=== PATIENT | female | born 1940 | race Caucasian/White ===

== ENCOUNTER 2016-11-26 09:44 | Emergency (ER) | payer MEDICARE ==
[~2016-11-26] VITALS: Ht 165.1 cm; Wt 48.0 kg
[~2016-11-26 09:44] MED LIST: AVEL1TAB3 PO; Albuterol/Ipratropium NEB; PRED10TA PO; TYLE500T78 PO; VITA10006 PO; VITA100066 PO
[2016-11-26] MEDS ORDERED: ACET30TAB PO (11:10)
[2016-11-26 11:22] VITALS: BP 152/80
--- NOTE | 2016-11-26 11:22 | REP ---
LEFT WRIST SERIES: Four views of the left wrist are performed. There is a comminuted fracture of the distal radius with dorsal angulation. There is an avulsion fracture of the ulnar styloid process. No other acute fracture or dislocation is seen. Signed by Perfecto Fuentes MD 11/26/2016 03:15 P
== END 2016-11-26 11:29 | disposition home or self-care (01) ==
LOC: M ED 11:24
DX: S52.502A Unspecified fracture of the lower end of left radius, initial encounter for closed fracture (principal); W19.XXXA Unspecified fall, initial encounter; Y92.007 Garden or yard of unspecified non-institutional (private) residence as the place of occurrence of the external cause; Y93.89 Activity, other specified; Y99.8 Other external cause status; Z87.891 Personal history of nicotine dependence; Z79.899 Other long term (current) drug therapy

== ENCOUNTER 2022-01-16 23:17 | Inpatient (IN) | payer MEDICARE ==
[~2022-01-16] VITALS: Ht 152.4 cm; Wt 48.3 kg
[~2022-01-16 23:17] MED LIST changes: +ACET-716 PO; +PRED-351 PO; -PRED10TA PO
[2022-01-16] MEDS ORDERED: ETOMIDATE INJ 20MG/10ML VIAL IV ONE (23:25)
[2022-01-16] MEDS ORDERED: ROCURONIUM BROMIDE 50 MG/5 ML VIAL IV ONE (23:25)
[2022-01-16] MEDS ORDERED: propofoL 1,000 MG in IV 1 EA IV SCH (23:30)
[2022-01-17] VITALS (62 sets, daily range): BP systolic 62–154; BP diastolic 35–89
[2022-01-17 00:05] LABS: ABG BASE EXCESS -3.8 (-2.0-2.0); ABG HCO3 23.8 MEQ/L (22.0-26.0); ABG PARTIAL PRESSURE CO2 54.3 mmHg (35.0-45.0); ABG PARTIAL PRESSURE O2 171.9 mmHg (75.0-100.0); ABG STANDARD HCO3 21.4 MEQ/L (22.0-26.0); ABG TOTAL CO2 25.5 MEQ/L (23.0-31.0)
[2022-01-17 00:17] LABS: HEMATOCRIT 43.4 % (36.0-47.0); HEMOGLOBIN 13.7 g/dl (12.0-15.5); MEAN CORPUSCULAR HGB CONC 31.6 g/dl (32.0-36.5); PLATELET COUNT, AUTOMATED 356 10^3/uL (150-450); RED BLOOD COUNT 4.57 10^6/uL (4.00-5.40); WHITE BLOOD COUNT 18.1 10^3/uL (4.0-10.0)
[2022-01-17] MEDS ORDERED: HOME MED LIST COMPLETE! XX SCH (00:30)
[2022-01-17 00:59] LABS: ATYPICAL LYMPH 8 % (0-5); EOSINOPHILS 2 % (0-3); LYMPHOCYTES 40 % (16-44); MONOCYTES 8 % (0-5); NEUTROPHILS 42 % (28-66); PLATELET ESTIMATE NORMAL (NORMAL)
[2022-01-17 01:04] LABS: ALBUMIN 2.8 GM/DL (3.2-5.2); BILIRUBIN,DIRECT 0.3 MG/DL (0.0-0.2); BILIRUBIN,TOTAL 0.3 MG/DL (0.2-1.0); CALCIUM LEVEL 8.5 MG/DL (8.8-10.2); CREATININE FOR GFR 1.13 MG/DL (0.55-1.30); GLOMERULAR FILTRATION RATE 49.3 (>32); POTASSIUM SERUM 3.9 MEQ/L (3.5-5.1); TOTAL PROTEIN 6.5 GM/DL (6.4-8.2)
[2022-01-17] MEDS ORDERED: NS IV ONE (01:20)
[2022-01-17] MEDS ORDERED: PIPERACILLIN/TAZOBACTAM SOD 3.375 GM in D5W MINI-BAG PLUS 50 ML IV ONE (01:20)
[2022-01-17] MEDS ORDERED: ISOVUE-370 76% 100ML VIAL As Ordered ONE (01:22)
[2022-01-17 03:33] LABS: CK-MB VALUE MASS 3.3 NG/ML (<3.6); MB/CK RELATIVE INDEX 4.58 (< OR =4)
[2022-01-17] MEDS ORDERED: NS 500 ML IV ONE ×5 (03:45→21:45)
[2022-01-17] MEDS ORDERED: GLUCOSE 4GM CHEW TABLET PO PRN (04:40)
[2022-01-17] MEDS ORDERED: REFRIGERATOR IV KEYS XX PRN (04:40)
[2022-01-17] MEDS ORDERED: DEXTROSE 50% 50 ML SYRINGE IV PRN (04:40)
[2022-01-17] MEDS ORDERED: GLUCAGON INJ 1MG VIAL SC PRN (04:40)
[2022-01-17] MEDS ORDERED: ALBUTEROL 90 MCG/ACT 8GM HFA INHALER INH PRN (04:40)
[2022-01-17] MEDS: NS 1,000 ML IV SCH ×2 (05:02→17:25)
[2022-01-17] MEDS: INSULIN LISPRO (NovoLOG) PER UNIT SC SCH ×3 (06:15→18:00)
[2022-01-17] MEDS: MIDAZOLAM HCL 100 MG in D5W 80 ML IV SCH (06:47)
[2022-01-17 07:39] LABS: BLOOD UREA NITROGEN 14 MG/DL (7-18); CALCIUM LEVEL 7.6 MG/DL (8.8-10.2); CARBON DIOXIDE LEVEL 29 MEQ/L (21-32); CHLORIDE LEVEL 109 MEQ/L (98-107); CREATININE FOR GFR 0.73 MG/DL (0.55-1.30); GLOMERULAR FILTRATION RATE > 60.0 (>32); GLUCOSE, FASTING 86 MG/DL (70-100); PHOSPHORUS LEVEL 2.9 MG/DL (2.5-4.9); POTASSIUM SERUM 3.8 MEQ/L (3.5-5.1); SODIUM LEVEL 143 MEQ/L (136-145)
[2022-01-17 07:42] LABS: CK-MB VALUE MASS 13.4 NG/ML (<3.6); MB/CK RELATIVE INDEX 8.12 (< OR =4)
[2022-01-17] MEDS ORDERED: NS 1,000 ML IV SCH (07:45)
[2022-01-17 07:49] LABS: BASO % 0.3 % (0.0-1.0); EOS # 0.1 10^3/uL (0.0-0.5); EOS % 0.4 % (0.0-3.0); HEMATOCRIT 39.7 % (36.0-47.0); HEMOGLOBIN 12.5 g/dl (12.0-15.5); LYMPH # 1.5 10^3/uL (1.5-5.0); LYMPH % 10.8 % (24.0-44.0); MEAN CORPUSCULAR HEMOGLOBIN 29.3 pg (27.0-33.0); MEAN CORPUSCULAR HGB CONC 31.5 g/dl (32.0-36.5); MEAN CORPUSCULAR VOLUME 93.2 fl (80.0-96.0); MONO % 11.2 % (2.0-8.0); NEUTROPHILS # 10.9 10^3/uL (1.5-8.5); NEUTROPHILS % 76.7 % (36.0-66.0); PLATELET COUNT, AUTOMATED 268 10^3/uL (150-450); RED BLOOD COUNT 4.26 10^6/uL (4.00-5.40); WHITE BLOOD COUNT 14.1 10^3/uL (4.0-10.0)
[2022-01-17 07:50] LABS: MONO # 1.6 10^3/uL (0.0-0.8)
[2022-01-17] MEDS: PIPERACILLIN/TAZOBACTAM SOD 3.375 GM in D5W MINI-BAG PLUS 50 ML IV SCH ×3 (08:52→20:04)
[2022-01-17] MEDS: CHLORHEXIDINE GLUCONATE 0.12 % 15ML UDC (PERIDEX ORAL RINSE) MT SCH ×2 (08:52→21:22)
[2022-01-17] MEDS: PANTOPRAZOLE 40MG VIAL IV SCH (08:52)
[2022-01-17] MEDS: fentaNYL CITRATE 1,000 MCG in NS 80 ML IV SCH ×3 (08:53→23:30)
[2022-01-17] MEDS ORDERED: HEPARIN SOD (PORCINE) 5000UNITS/ML 1ML VIAL/SYRINGE SQ SCH (09:00)
[2022-01-17 12:03] LABS: ABG BASE EXCESS 0.1 (-2.0-2.0); ABG HCO3 24.5 MEQ/L (22.0-26.0); ABG O2 SATURATION 99.1 % (95.0-99.0); ABG PARTIAL PRESSURE CO2 39.2 mmHg (35.0-45.0); ABG PARTIAL PRESSURE O2 159.4 mmHg (75.0-100.0); ABG STANDARD HCO3 24.6 MEQ/L (22.0-26.0); ABG TOTAL CO2 25.7 MEQ/L (23.0-31.0); ABG pH (ARTERIAL) 7.414 UNITS (7.350-7.450)
[2022-01-17] MEDS: AZITHROMYCIN INJ 500 MG, VIAL MATE ADAPTER 1 EACH in NS 250 ML IV SCH (13:01)
[2022-01-17] MEDS ORDERED: HEPARIN DRIP 25,000 UNITS in IV 1 EA IV SCH (14:45)
[2022-01-17] MEDS ORDERED: HEPARIN SOD (PORCINE) 5000UNITS/ML 1ML VIAL/SYRINGE IV ONE (14:45)
[2022-01-17] MEDS ORDERED: HEPARIN SOD (PORCINE) 5000UNITS/ML 1ML VIAL/SYRINGE IV PRN (14:45)
[2022-01-17] MEDS ORDERED: MIDAZOLAM INJ 2MG/2ML VIAL (J2250 PER 1MG) As Ordered ONE ×2 (16:29→16:41)
[2022-01-17] MEDS ORDERED: MIDAZOLAM INJ 2MG/2ML VIAL (J2250 PER 1MG) IV ONE ×2 (16:30→16:45)
[2022-01-17 17:18] LABS: CENTRAL VEN BASE EXCESS -1.9
[2022-01-17] MEDS ORDERED: LR 1,000 ML IV ONE (17:20)
[2022-01-17] MEDS ORDERED: fentaNYL CITRATE 1,000 MCG in NS 80 ML IV SCH (18:22)
[2022-01-17] MEDS ORDERED: VANCOMYCIN HCL 1,000 MG in IV FLUID PLACE HOLDER 1 EA IV SCH (19:30)
[2022-01-17] MEDS ORDERED: NOREPINEPHRINE 8MG IN 500ML DEXTROSE 5% BAG As Ordered ONE (19:56)
[2022-01-17] MEDS ORDERED: VANCOMYCIN HCL 1,000 MG, VIAL MATE ADAPTER 1 EACH in D5W 250 ML IV ONE (21:00)
[2022-01-17 21:34] LABS: ABG BASE EXCESS -4.8 (-2.0-2.0); ABG HCO3 20.4 MEQ/L (22.0-26.0); ABG O2 SATURATION 97.4 % (95.0-99.0); ABG PARTIAL PRESSURE CO2 38.1 mmHg (35.0-45.0); ABG PARTIAL PRESSURE O2 100.8 mmHg (75.0-100.0); ABG STANDARD HCO3 20.5 MEQ/L (22.0-26.0); ABG TOTAL CO2 21.5 MEQ/L (23.0-31.0); ABG pH (ARTERIAL) 7.346 UNITS (7.350-7.450)
[2022-01-17] MEDS: NOREPINEPHRINE/DEXTROSE 8 MG in IV 1 EA IV SCH (23:17)
[2022-01-18] VITALS (89 sets, daily range): BP systolic 66–156; BP diastolic 44–93
[2022-01-18] MEDS: INSULIN LISPRO (NovoLOG) PER UNIT SC SCH ×4 (00:24→18:00)
[2022-01-18] MEDS: NS 1,000 ML IV SCH ×2 (02:22→18:05)
[2022-01-18] MEDS: PIPERACILLIN/TAZOBACTAM SOD 3.375 GM in D5W MINI-BAG PLUS 50 ML IV SCH ×4 (02:22→20:34)
[2022-01-18] MEDS: VANCOMYCIN HCL 500 MG in D5W MINI-BAG PLUS 100 ML IV SCH ×2 (05:28→18:04)
[2022-01-18 05:50] LABS: ABG HCO3 22.4 MEQ/L (22.0-26.0); ABG O2 SATURATION 97.8 % (95.0-99.0); ABG PARTIAL PRESSURE O2 109.1 mmHg (75.0-100.0); ABG STANDARD HCO3 21.2 MEQ/L (22.0-26.0); ABG TOTAL CO2 23.8 MEQ/L (23.0-31.0); ABG pH (ARTERIAL) 7.305 UNITS (7.350-7.450)
[2022-01-18 05:51] LABS: BASO % 0.2 % (0.0-1.0); EOS # 0.3 10^3/uL (0.0-0.5); EOS % 1.8 % (0.0-3.0); HEMATOCRIT 34.1 % (36.0-47.0); HEMOGLOBIN 10.9 g/dl (12.0-15.5); LYMPH # 1.8 10^3/uL (1.5-5.0); LYMPH % 11.4 % (24.0-44.0); MEAN CORPUSCULAR HEMOGLOBIN 29.5 pg (27.0-33.0); MEAN CORPUSCULAR VOLUME 92.2 fl (80.0-96.0); MONO # 1.4 10^3/uL (0.0-0.8); MONO % 8.8 % (2.0-8.0); NEUTROPHILS % 77.4 % (36.0-66.0); PLATELET COUNT, AUTOMATED 247 10^3/uL (150-450); WHITE BLOOD COUNT 15.6 10^3/uL (4.0-10.0)
[2022-01-18] MEDS: MIDAZOLAM HCL 100 MG in D5W 80 ML IV SCH (06:02)
[2022-01-18 06:20] LABS: HEMOGLOBIN A1c 5.8 %
[2022-01-18 06:38] LABS: ALBUMIN 1.9 GM/DL (3.2-5.2); ALT/SGPT 48 U/L (12-78); BILIRUBIN,TOTAL 0.4 MG/DL (0.2-1.0); BLOOD UREA NITROGEN 10 MG/DL (7-18); CALCIUM LEVEL 7.3 MG/DL (8.8-10.2); CARBON DIOXIDE LEVEL 23 MEQ/L (21-32); CHLORIDE LEVEL 115 MEQ/L (98-107); CREATININE FOR GFR 0.72 MG/DL (0.55-1.30); GLOMERULAR FILTRATION RATE > 60.0 (>32); GLUCOSE, FASTING 153 MG/DL (70-100); POTASSIUM SERUM 3.3 MEQ/L (3.5-5.1); SODIUM LEVEL 143 MEQ/L (136-145); TOTAL PROTEIN 4.4 GM/DL (6.4-8.2)
[2022-01-18] MEDS: PANTOPRAZOLE 40MG VIAL IV SCH (08:00)
[2022-01-18] MEDS: CHLORHEXIDINE GLUCONATE 0.12 % 15ML UDC (PERIDEX ORAL RINSE) MT SCH ×2 (08:00→20:34)
[2022-01-18] MEDS ORDERED: MIDAZOLAM INJ 2MG/2ML VIAL (J2250 PER 1MG) As Ordered ONE ×2 (09:36→09:37)
[2022-01-18] MEDS ORDERED: LIDOCAINE 1% MDV 20ML VIAL As Ordered ONE (09:36)
[2022-01-18] MEDS ORDERED: flumazeniL 0.5 MG/5 ML VIAL As Ordered ONE (09:37)
[2022-01-18] MEDS ORDERED: LIDOCAINE 1% MDV 20ML VIAL SC ONE (09:49)
[2022-01-18] MEDS ORDERED: VASOPRESSIN INJ 20 UNITS in NS 499 ML IV SCH ×2 (10:00)
[2022-01-18] MEDS: KCL 10MEQ/100ML SWI (KRUN) 10 MEQ in IV 1 EA IV SCH ×4 (10:21→14:00)
[2022-01-18] MEDS: NOREPINEPHRINE/DEXTROSE 8 MG in IV 1 EA IV SCH (11:15)
[2022-01-18] MEDS: AZITHROMYCIN INJ 500 MG, VIAL MATE ADAPTER 1 EACH in NS 250 ML IV SCH (12:28)
[2022-01-18] MEDS: fentaNYL CITRATE 1,000 MCG in NS 80 ML IV SCH (12:29)
[2022-01-18] MEDS ORDERED: LR 1,000 ML IV ONE (15:10)
[2022-01-18] MEDS ORDERED: FENTANYL DRIP LOCK BOX KEY 1 EACH XX PRN (15:10)
[2022-01-18] MEDS: MAG SULF 1GM/100ML (MAG RUN) 1 GM in IV 1 EA IV SCH ×2 (15:56→18:06)
[2022-01-18] MEDS: VASOPRESSIN INJ 20 UNITS in NS 499 ML IV SCH (18:05)
[2022-01-19] VITALS (65 sets, daily range): BP systolic 77–173; BP diastolic 44–83
[2022-01-19] MEDS: INSULIN LISPRO (NovoLOG) PER UNIT SC SCH ×4 (00:08→16:24)
[2022-01-19] MEDS: NS 1,000 ML IV SCH (00:11)
[2022-01-19] MEDS: [UNRECOGNIZED DRUG - OTHER] IV SCH ×2 (01:16→15:25)
[2022-01-19] MEDS: FENTANYL IV SCH ×2 (01:16→15:25)
[2022-01-19] MEDS: PIPERACILLIN/TAZOBACTAM SOD 3.375 GM in D5W MINI-BAG PLUS 50 ML IV SCH (01:16)
[2022-01-19] MEDS: VASOPRESSIN INJ 20 UNITS in NS 499 ML IV SCH ×3 (01:44→19:00)
[2022-01-19 04:26] LABS: BASO % 0.2 % (0.0-1.0); EOS # 0.2 10^3/uL (0.0-0.5); EOS % 1.8 % (0.0-3.0); HEMATOCRIT 31.1 % (36.0-47.0); HEMOGLOBIN 9.6 g/dl (12.0-15.5); LYMPH # 1.5 10^3/uL (1.5-5.0); LYMPH % 11.9 % (24.0-44.0); MEAN CORPUSCULAR HEMOGLOBIN 29.1 pg (27.0-33.0); MEAN CORPUSCULAR HGB CONC 30.9 g/dl (32.0-36.5); MEAN CORPUSCULAR VOLUME 94.2 fl (80.0-96.0); MONO # 1.3 10^3/uL (0.0-0.8); NEUTROPHILS # 9.7 10^3/uL (1.5-8.5); NEUTROPHILS % 75.6 % (36.0-66.0); PLATELET COUNT, AUTOMATED 194 10^3/uL (150-450); WHITE BLOOD COUNT 12.9 10^3/uL (4.0-10.0)
[2022-01-19 05:18] LABS: ALBUMIN 1.5 GM/DL (3.2-5.2); ALT/SGPT 33 U/L (12-78); BILIRUBIN,TOTAL 0.3 MG/DL (0.2-1.0); BLOOD UREA NITROGEN 9 MG/DL (7-18); CALCIUM LEVEL 7.3 MG/DL (8.8-10.2); CARBON DIOXIDE LEVEL 22 MEQ/L (21-32); CHLORIDE LEVEL 113 MEQ/L (98-107); CREATININE FOR GFR 0.55 MG/DL (0.55-1.30); GLOMERULAR FILTRATION RATE > 60.0 (>32); GLUCOSE, FASTING 135 MG/DL (70-100); MAGNESIUM LEVEL 1.9 MG/DL (1.8-2.4); POTASSIUM SERUM 3.4 MEQ/L (3.5-5.1); SODIUM LEVEL 138 MEQ/L (136-145); TOTAL PROTEIN 4.3 GM/DL (6.4-8.2)
[2022-01-19] MEDS: VANCOMYCIN HCL 500 MG in D5W MINI-BAG PLUS 100 ML IV SCH (05:44)
[2022-01-19] MEDS: MIDAZOLAM HCL 100 MG in D5W 80 ML IV SCH (05:48)
[2022-01-19 05:49] LABS: ABG BASE EXCESS -5.7 (-2.0-2.0); ABG HCO3 21.1 MEQ/L (22.0-26.0); ABG O2 SATURATION 97.8 % (95.0-99.0); ABG PARTIAL PRESSURE CO2 47.4 mmHg (35.0-45.0); ABG PARTIAL PRESSURE O2 110.5 mmHg (75.0-100.0); ABG STANDARD HCO3 19.8 MEQ/L (22.0-26.0); ABG TOTAL CO2 22.5 MEQ/L (23.0-31.0); ABG pH (ARTERIAL) 7.266 UNITS (7.350-7.450)
[2022-01-19] MEDS ORDERED: KCL 10MEQ/100ML SWI (KRUN) 10 MEQ in IV 1 EA IV ONE (06:15)
[2022-01-19] MEDS ORDERED: ceFAZolin 1GM VIAL (J0690 PER 500MG) IM SCH (08:50)
[2022-01-19] MEDS ORDERED: FUROSEMIDE 20MG/2ML VIAL (J1940) IV ONE (08:55)
[2022-01-19] MEDS ORDERED: ceFAZolin SOD 1 GM in D5W MINI-BAG PLUS 50 ML IV SCH (09:00)
[2022-01-19] MEDS: HEPARIN SOD (PORCINE) 5000UNITS/ML 1ML VIAL/SYRINGE SQ SCH ×2 (09:24→20:31)
[2022-01-19] MEDS: CHLORHEXIDINE GLUCONATE 0.12 % 15ML UDC (PERIDEX ORAL RINSE) MT SCH ×2 (09:24→20:30)
[2022-01-19] MEDS: PANTOPRAZOLE 40MG VIAL IV SCH (09:25)
[2022-01-19] MEDS: fentaNYL CITRATE 1,000 MCG in NS 80 ML IV SCH (09:25)
[2022-01-19 11:47] LABS: ABG BASE EXCESS -4.1 (-2.0-2.0); ABG HCO3 22.1 MEQ/L (22.0-26.0); ABG O2 SATURATION 98.8 % (95.0-99.0); ABG PARTIAL PRESSURE CO2 45.3 mmHg (35.0-45.0); ABG PARTIAL PRESSURE O2 140.1 mmHg (75.0-100.0); ABG STANDARD HCO3 21.1 MEQ/L (22.0-26.0); ABG TOTAL CO2 23.5 MEQ/L (23.0-31.0); ABG pH (ARTERIAL) 7.306 UNITS (7.350-7.450)
[2022-01-19] MEDS: NOREPINEPHRINE/DEXTROSE 8 MG in IV 1 EA IV SCH (12:45)
[2022-01-20] VITALS (61 sets, daily range): BP systolic 73–197; BP diastolic 45–93
[2022-01-20] MEDS: FENTANYL IV SCH ×2 (01:00→13:10)
[2022-01-20] MEDS: [UNRECOGNIZED DRUG - OTHER] IV SCH ×2 (01:00→13:10)
[2022-01-20 05:29] LABS: BASO % 0.3 % (0.0-1.0); EOS # 0.3 10^3/uL (0.0-0.5); EOS % 3.4 % (0.0-3.0); HEMATOCRIT 29.1 % (36.0-47.0); HEMOGLOBIN 9.2 g/dl (12.0-15.5); LYMPH # 1.6 10^3/uL (1.5-5.0); LYMPH % 17.7 % (24.0-44.0); MEAN CORPUSCULAR HEMOGLOBIN 29.3 pg (27.0-33.0); MEAN CORPUSCULAR HGB CONC 31.6 g/dl (32.0-36.5); MEAN CORPUSCULAR VOLUME 92.7 fl (80.0-96.0); MONO # 0.9 10^3/uL (0.0-0.8); MONO % 9.7 % (2.0-8.0); NEUTROPHILS # 6.3 10^3/uL (1.5-8.5); NEUTROPHILS % 68.5 % (36.0-66.0); PLATELET COUNT, AUTOMATED 185 10^3/uL (150-450); RED BLOOD COUNT 3.14 10^6/uL (4.00-5.40); WHITE BLOOD COUNT 9.2 10^3/uL (4.0-10.0)
[2022-01-20 05:33] LABS: ABG HCO3 27.6 MEQ/L (22.0-26.0); ABG O2 SATURATION 97.4 % (95.0-99.0); ABG PARTIAL PRESSURE CO2 48.2 mmHg (35.0-45.0); ABG PARTIAL PRESSURE O2 93.8 mmHg (75.0-100.0); ABG STANDARD HCO3 26.2 MEQ/L (22.0-26.0); ABG TOTAL CO2 29.1 MEQ/L (23.0-31.0); ABG pH (ARTERIAL) 7.376 UNITS (7.350-7.450)
[2022-01-20] MEDS: INSULIN LISPRO (NovoLOG) PER UNIT SC SCH ×4 (06:00→16:58)
[2022-01-20 06:11] LABS: ALBUMIN 2.5 GM/DL (3.2-5.2); ALT/SGPT 23 U/L (12-78); BILIRUBIN,TOTAL 0.4 MG/DL (0.2-1.0); BLOOD UREA NITROGEN 12 MG/DL (7-18); CARBON DIOXIDE LEVEL 28 MEQ/L (21-32); CHLORIDE LEVEL 111 MEQ/L (98-107); CREATININE FOR GFR 0.58 MG/DL (0.55-1.30); GLOMERULAR FILTRATION RATE > 60.0 (>32); GLUCOSE, FASTING 102 MG/DL (70-100); POTASSIUM SERUM 3.7 MEQ/L (3.5-5.1); SODIUM LEVEL 140 MEQ/L (136-145); TOTAL PROTEIN 5.1 GM/DL (6.4-8.2)
[2022-01-20] MEDS: CHLORHEXIDINE GLUCONATE 0.12 % 15ML UDC (PERIDEX ORAL RINSE) MT SCH ×2 (08:28→21:21)
[2022-01-20] MEDS: HEPARIN SOD (PORCINE) 5000UNITS/ML 1ML VIAL/SYRINGE SQ SCH ×2 (08:28→21:22)
[2022-01-20] MEDS: PANTOPRAZOLE 40MG VIAL IV SCH (08:28)
[2022-01-20] MEDS ORDERED: FUROSEMIDE 20MG/2ML VIAL (J1940) IV ONE (11:45)
[2022-01-20] MEDS ORDERED: FUROSEMIDE injection 250 MG in D5W 225 ML IV SCH (13:00)
[2022-01-20] MEDS: dexmedeTOMidine 200 MCG in IV 1 EA IV SCH (13:20)
[2022-01-20 19:15] LABS: ABG BASE EXCESS 5.8 (-2.0-2.0); ABG HCO3 30.2 MEQ/L (22.0-26.0); ABG O2 SATURATION 97.6 % (95.0-99.0); ABG PARTIAL PRESSURE CO2 42.8 mmHg (35.0-45.0); ABG PARTIAL PRESSURE O2 89.8 mmHg (75.0-100.0); ABG STANDARD HCO3 29.8 MEQ/L (22.0-26.0); ABG TOTAL CO2 31.5 MEQ/L (23.0-31.0); ABG pH (ARTERIAL) 7.466 UNITS (7.350-7.450)
[2022-01-20] MEDS: NOREPINEPHRINE/DEXTROSE 8 MG in IV 1 EA IV SCH (20:03)
[2022-01-21] VITALS (64 sets, daily range): BP systolic 92–226; BP diastolic 2–112; O2SAT 96–100
[2022-01-21] MEDS: dexmedeTOMidine 200 MCG in IV 1 EA IV SCH (01:26)
[2022-01-21 05:27] LABS: ABG O2 SATURATION 97.3 % (95.0-99.0); ABG PARTIAL PRESSURE CO2 48.3 mmHg (35.0-45.0); ABG PARTIAL PRESSURE O2 93.9 mmHg (75.0-100.0); ABG STANDARD HCO3 31.8 MEQ/L (22.0-26.0); ABG TOTAL CO2 34.5 MEQ/L (23.0-31.0); ABG pH (ARTERIAL) 7.453 UNITS (7.350-7.450)
[2022-01-21 05:30] LABS: BASO % 0.3 % (0.0-1.0); EOS # 0.2 10^3/uL (0.0-0.5); EOS % 2.5 % (0.0-3.0); HEMATOCRIT 31.7 % (36.0-47.0); HEMOGLOBIN 10.2 g/dl (12.0-15.5); LYMPH # 1.3 10^3/uL (1.5-5.0); LYMPH % 13.3 % (24.0-44.0); MEAN CORPUSCULAR HEMOGLOBIN 28.9 pg (27.0-33.0); MEAN CORPUSCULAR HGB CONC 32.2 g/dl (32.0-36.5); MEAN CORPUSCULAR VOLUME 89.8 fl (80.0-96.0); MONO # 0.7 10^3/uL (0.0-0.8); MONO % 7.6 % (2.0-8.0); NEUTROPHILS # 7.2 10^3/uL (1.5-8.5); NEUTROPHILS % 75.9 % (36.0-66.0); PLATELET COUNT, AUTOMATED 198 10^3/uL (150-450); RED BLOOD COUNT 3.53 10^6/uL (4.00-5.40); WHITE BLOOD COUNT 9.5 10^3/uL (4.0-10.0)
[2022-01-21 06:09] LABS: ALBUMIN 2.4 GM/DL (3.2-5.2); ALT/SGPT 21 U/L (12-78); BILIRUBIN,TOTAL 0.4 MG/DL (0.2-1.0); BLOOD UREA NITROGEN 17 MG/DL (7-18); CALCIUM LEVEL 8.2 MG/DL (8.8-10.2); CARBON DIOXIDE LEVEL 35 MEQ/L (21-32); CHLORIDE LEVEL 104 MEQ/L (98-107); CREATININE FOR GFR 0.62 MG/DL (0.55-1.30); GLOMERULAR FILTRATION RATE > 60.0 (>32); GLUCOSE, FASTING 148 MG/DL (70-100); POTASSIUM SERUM 2.8 MEQ/L (3.5-5.1); SODIUM LEVEL 143 MEQ/L (136-145); TOTAL PROTEIN 5.6 GM/DL (6.4-8.2)
[2022-01-21] MEDS: INSULIN LISPRO (NovoLOG) PER UNIT SC SCH ×5 (06:26→23:54)
[2022-01-21 06:51] LABS: MAGNESIUM LEVEL 1.6 MG/DL (1.8-2.4)
[2022-01-21] MEDS: KCL 20MEQ IN 100ML SWI (KRUN) 20 MEQ in IV 1 EA IV SCH ×4 (06:54→07:53)
[2022-01-21] MEDS: [UNRECOGNIZED DRUG - OTHER] IV SCH ×2 (06:55→09:21)
[2022-01-21] MEDS: FENTANYL IV SCH ×2 (06:55→09:21)
[2022-01-21] MEDS: PANTOPRAZOLE 40MG VIAL IV SCH (09:40)
[2022-01-21] MEDS: CHLORHEXIDINE GLUCONATE 0.12 % 15ML UDC (PERIDEX ORAL RINSE) MT SCH (09:40)
[2022-01-21] MEDS: HEPARIN SOD (PORCINE) 5000UNITS/ML 1ML VIAL/SYRINGE SQ SCH ×2 (09:40→21:21)
[2022-01-21] MEDS ORDERED: MAG SULF 1GM/100ML (MAG RUN) 1 GM in IV 1 EA IV ONE (09:55)
[2022-01-21 11:08] LABS: ABG BASE EXCESS 9.1 (-2.0-2.0); ABG HCO3 33.5 MEQ/L (22.0-26.0); ABG O2 SATURATION 98.4 % (95.0-99.0); ABG PARTIAL PRESSURE CO2 44.6 mmHg (35.0-45.0); ABG PARTIAL PRESSURE O2 113.8 mmHg (75.0-100.0); ABG STANDARD HCO3 32.9 MEQ/L (22.0-26.0); ABG TOTAL CO2 34.8 MEQ/L (23.0-31.0); ABG pH (ARTERIAL) 7.493 UNITS (7.350-7.450)
[2022-01-21] MEDS: BUDESONIDE 0.5 MG/2 ML INHALATION SUSPENSION INH SCH ×2 (13:27→20:08)
[2022-01-21] MEDS: IPRATROPIUM 0.5MG/ALBUTEROL 2.5MG INH SOL UD 3ML (DUONEB) NEB SCH ×4 (13:28→23:23)
[2022-01-21 13:39] LABS: ABG BASE EXCESS 9.8 (-2.0-2.0); ABG HCO3 34.6 MEQ/L (22.0-26.0); ABG O2 SATURATION 99.1 % (95.0-99.0); ABG PARTIAL PRESSURE CO2 48.1 mmHg (35.0-45.0); ABG PARTIAL PRESSURE O2 152.8 mmHg (75.0-100.0); ABG STANDARD HCO3 33.6 MEQ/L (22.0-26.0); ABG TOTAL CO2 36.1 MEQ/L (23.0-31.0); ABG pH (ARTERIAL) 7.475 UNITS (7.350-7.450)
[2022-01-22] VITALS (28 sets, daily range): BP systolic 109–185; BP diastolic 53–95
[2022-01-22] MEDS: IPRATROPIUM 0.5MG/ALBUTEROL 2.5MG INH SOL UD 3ML (DUONEB) NEB SCH ×5 (03:18→21:03)
[2022-01-22 05:10] LABS: HEMATOCRIT 35.8 % (36.0-47.0); HEMOGLOBIN 11.6 g/dl (12.0-15.5); MEAN CORPUSCULAR HGB CONC 32.4 g/dl (32.0-36.5); MEAN CORPUSCULAR VOLUME 89.5 fl (80.0-96.0); PLATELET COUNT, AUTOMATED 257 10^3/uL (150-450); WHITE BLOOD COUNT 12.6 10^3/uL (4.0-10.0)
[2022-01-22 05:54] LABS: ALBUMIN 2.6 GM/DL (3.2-5.2); ALT/SGPT 22 U/L (12-78); BILIRUBIN,TOTAL 0.6 MG/DL (0.2-1.0); BLOOD UREA NITROGEN 16 MG/DL (7-18); CALCIUM LEVEL 8.9 MG/DL (8.8-10.2); CARBON DIOXIDE LEVEL 31 MEQ/L (21-32); CHLORIDE LEVEL 101 MEQ/L (98-107); GLOMERULAR FILTRATION RATE > 60.0 (>32); GLUCOSE, FASTING 127 MG/DL (70-100); MAGNESIUM LEVEL 2.1 MG/DL (1.8-2.4); POTASSIUM SERUM 3.8 MEQ/L (3.5-5.1); SODIUM LEVEL 138 MEQ/L (136-145); TOTAL PROTEIN 5.5 GM/DL (6.4-8.2)
[2022-01-22] MEDS: INSULIN LISPRO (NovoLOG) PER UNIT SC SCH ×3 (05:56→18:00)
[2022-01-22] MEDS: BUDESONIDE 0.5 MG/2 ML INHALATION SUSPENSION INH SCH ×2 (08:27→21:02)
[2022-01-22] MEDS: PANTOPRAZOLE 40MG VIAL IV SCH (09:03)
[2022-01-22] MEDS: HEPARIN SOD (PORCINE) 5000UNITS/ML 1ML VIAL/SYRINGE SQ SCH ×2 (09:04→22:57)
[2022-01-22 09:59] LABS: CLOSTRIDIUM DIFFICILE PCR NEGATIVE (NEGATIVE)
[2022-01-22] MEDS ORDERED: LIDOCAINE 1% MDV 20ML VIAL As Ordered ONE (14:39)
[2022-01-22] MEDS: SODIUM CHLORIDE 0.9% INJ 10 ML SYR IV SCH (18:58)
[2022-01-23] VITALS (7 sets, daily range): BP systolic 111–173; BP diastolic 62–91; O2SAT 86–92
[2022-01-23] MEDS: IPRATROPIUM 0.5MG/ALBUTEROL 2.5MG INH SOL UD 3ML (DUONEB) NEB SCH ×7 (04:00→23:47)
[2022-01-23] MEDS: INSULIN LISPRO (NovoLOG) PER UNIT SC SCH ×5 (06:00→20:50)
[2022-01-23] MEDS: BUDESONIDE 0.5 MG/2 ML INHALATION SUSPENSION INH SCH ×2 (07:05→21:24)
[2022-01-23 08:04] LABS: HEMATOCRIT 32.9 % (36.0-47.0); HEMOGLOBIN 10.8 g/dl (12.0-15.5); MEAN CORPUSCULAR HEMOGLOBIN 29.1 pg (27.0-33.0); MEAN CORPUSCULAR HGB CONC 32.8 g/dl (32.0-36.5); MEAN CORPUSCULAR VOLUME 88.7 fl (80.0-96.0); PLATELET COUNT, AUTOMATED 254 10^3/uL (150-450); RED BLOOD COUNT 3.71 10^6/uL (4.00-5.40); WHITE BLOOD COUNT 12.3 10^3/uL (4.0-10.0)
[2022-01-23 08:35] LABS: BLOOD UREA NITROGEN 18 MG/DL (7-18); CALCIUM LEVEL 8.5 MG/DL (8.8-10.2); CARBON DIOXIDE LEVEL 27 MEQ/L (21-32); CHLORIDE LEVEL 104 MEQ/L (98-107); CREATININE FOR GFR 0.48 MG/DL (0.55-1.30); GLOMERULAR FILTRATION RATE > 60.0 (>32); GLUCOSE, FASTING 85 MG/DL (70-100); POTASSIUM SERUM 3.6 MEQ/L (3.5-5.1); SODIUM LEVEL 138 MEQ/L (136-145)
[2022-01-23] MEDS: HEPARIN SOD (PORCINE) 5000UNITS/ML 1ML VIAL/SYRINGE SQ SCH ×2 (09:09→20:55)
[2022-01-23] MEDS: SODIUM CHLORIDE 0.9% INJ 10 ML SYR IV SCH (16:25)
[2022-01-23] MEDS ORDERED: D5W/0.9% SODIUM CHLORIDE 1,000 ML IV SCH (18:00)
[2022-01-24 00:18] VITALS: O2SAT 92
[2022-01-24] MEDS: IPRATROPIUM 0.5MG/ALBUTEROL 2.5MG INH SOL UD 3ML (DUONEB) NEB SCH ×6 (04:00→23:34)
[2022-01-24 05:43] VITALS: BP 133/72
[2022-01-24] MEDS: BUDESONIDE 0.5 MG/2 ML INHALATION SUSPENSION INH SCH ×2 (07:24→19:49)
[2022-01-24] MEDS: INSULIN LISPRO (NovoLOG) PER UNIT SC SCH ×4 (07:30→21:00)
[2022-01-24 07:31] LABS: BLOOD UREA NITROGEN 13 MG/DL (7-18); CALCIUM LEVEL 8.1 MG/DL (8.8-10.2); CARBON DIOXIDE LEVEL 31 MEQ/L (21-32); CHLORIDE LEVEL 106 MEQ/L (98-107); CREATININE FOR GFR 0.42 MG/DL (0.55-1.30); GLOMERULAR FILTRATION RATE > 60.0 (>32); GLUCOSE, FASTING 106 MG/DL (70-100); POTASSIUM SERUM 3.4 MEQ/L (3.5-5.1); SODIUM LEVEL 142 MEQ/L (136-145)
[2022-01-24] MEDS: HEPARIN SOD (PORCINE) 5000UNITS/ML 1ML VIAL/SYRINGE SQ SCH ×2 (08:15→20:50)
[2022-01-24] MEDS ORDERED: POTASSIUM CHLORIDE 10% LIQ 20 MEQ/15 ML UDC PO ONE (10:15)
[2022-01-24 16:00] VITALS: BP 124/62
[2022-01-24] MEDS: SODIUM CHLORIDE 0.9% INJ 10 ML SYR IV SCH (16:25)
[2022-01-24 22:00] VITALS: BP 135/73
[2022-01-25] MEDS: IPRATROPIUM 0.5MG/ALBUTEROL 2.5MG INH SOL UD 3ML (DUONEB) NEB SCH ×5 (03:34→21:16)
[2022-01-25 06:00] VITALS: BP 130/75
[2022-01-25 06:15] LABS: HEMATOCRIT 31.6 % (36.0-47.0); MEAN CORPUSCULAR HGB CONC 31.6 g/dl (32.0-36.5); MEAN CORPUSCULAR VOLUME 91.6 fl (80.0-96.0); PLATELET COUNT, AUTOMATED 273 10^3/uL (150-450); RED BLOOD COUNT 3.45 10^6/uL (4.00-5.40); WHITE BLOOD COUNT 10.3 10^3/uL (4.0-10.0)
[2022-01-25 07:00] LABS: BLOOD UREA NITROGEN 10 MG/DL (7-18); CALCIUM LEVEL 8.2 MG/DL (8.8-10.2); CARBON DIOXIDE LEVEL 27 MEQ/L (21-32); CHLORIDE LEVEL 108 MEQ/L (98-107); CREATININE FOR GFR 0.45 MG/DL (0.55-1.30); GLOMERULAR FILTRATION RATE > 60.0 (>32); GLUCOSE, FASTING 80 MG/DL (70-100); MAGNESIUM LEVEL 1.8 MG/DL (1.8-2.4); POTASSIUM SERUM 3.4 MEQ/L (3.5-5.1); SODIUM LEVEL 141 MEQ/L (136-145)
[2022-01-25] MEDS: INSULIN LISPRO (NovoLOG) PER UNIT SC SCH ×4 (07:30→21:00)
[2022-01-25] MEDS: BUDESONIDE 0.5 MG/2 ML INHALATION SUSPENSION INH SCH ×2 (07:51→21:16)
[2022-01-25] MEDS: POTASSIUM CHLORIDE 10% LIQ 20 MEQ/15 ML UDC PO SCH (09:24)
[2022-01-25] MEDS: HEPARIN SOD (PORCINE) 5000UNITS/ML 1ML VIAL/SYRINGE SQ SCH ×2 (09:25→20:58)
[2022-01-25] MEDS ORDERED: MOM 30ML SUSPENSION UDC PO PRN (11:05)
[2022-01-25] MEDS ORDERED: QUEtiapine FUMARATE 12.5 MG HALF-TAB PO ONE (11:05)
[2022-01-25] MEDS ORDERED: MOM 30ML SUSPENSION UDC PO ONE (11:05)
[2022-01-25] MEDS: DOCUSATE SOD LIQ 100MG/10ML UDC PO SCH ×2 (12:19→20:58)
[2022-01-25 14:00] VITALS: BP 135/63
[2022-01-25] MEDS: QUEtiapine FUMARATE 12.5 MG HALF-TAB PO SCH (18:13)
[2022-01-25] MEDS: SODIUM CHLORIDE 0.9% INJ 10 ML SYR IV SCH (18:13)
[2022-01-25 21:00] VITALS: BP 134/63
[2022-01-26] MEDS: IPRATROPIUM 0.5MG/ALBUTEROL 2.5MG INH SOL UD 3ML (DUONEB) NEB SCH ×6 (00:37→20:23)
[2022-01-26 06:00] VITALS: BP 157/79
[2022-01-26 06:57] LABS: HEMATOCRIT 36.3 % (36.0-47.0); HEMOGLOBIN 11.7 g/dl (12.0-15.5); MEAN CORPUSCULAR HEMOGLOBIN 29.1 pg (27.0-33.0); MEAN CORPUSCULAR HGB CONC 32.2 g/dl (32.0-36.5); MEAN CORPUSCULAR VOLUME 90.3 fl (80.0-96.0); PLATELET COUNT, AUTOMATED 311 10^3/uL (150-450); RED BLOOD COUNT 4.02 10^6/uL (4.00-5.40); WHITE BLOOD COUNT 13.4 10^3/uL (4.0-10.0)
[2022-01-26] MEDS: BUDESONIDE 0.5 MG/2 ML INHALATION SUSPENSION INH SCH ×2 (07:10→20:23)
[2022-01-26 07:21] LABS: BLOOD UREA NITROGEN 11 MG/DL (7-18); CALCIUM LEVEL 8.9 MG/DL (8.8-10.2); CARBON DIOXIDE LEVEL 26 MEQ/L (21-32); CHLORIDE LEVEL 106 MEQ/L (98-107); CREATININE FOR GFR 0.59 MG/DL (0.55-1.30); GLOMERULAR FILTRATION RATE > 60.0 (>32); GLUCOSE, FASTING 74 MG/DL (70-100); MAGNESIUM LEVEL 2.2 MG/DL (1.8-2.4); POTASSIUM SERUM 3.6 MEQ/L (3.5-5.1); SODIUM LEVEL 140 MEQ/L (136-145)
[2022-01-26] MEDS: INSULIN LISPRO (NovoLOG) PER UNIT SC SCH ×4 (07:30→21:00)
[2022-01-26] MEDS: DOCUSATE SOD LIQ 100MG/10ML UDC PO SCH ×2 (09:00→20:14)
[2022-01-26] MEDS: HEPARIN SOD (PORCINE) 5000UNITS/ML 1ML VIAL/SYRINGE SQ SCH ×2 (09:32→20:15)
[2022-01-26] MEDS: POTASSIUM CHLORIDE 10% LIQ 20 MEQ/15 ML UDC PO SCH (09:32)
[2022-01-26] MEDS: QUEtiapine FUMARATE 12.5 MG HALF-TAB PO SCH ×2 (09:32→18:00)
[2022-01-26] MEDS: SODIUM CHLORIDE 0.9% INJ 10 ML SYR IV SCH (18:01)
[2022-01-27] MEDS: IPRATROPIUM 0.5MG/ALBUTEROL 2.5MG INH SOL UD 3ML (DUONEB) NEB SCH ×6 (00:21→20:36)
[2022-01-27 04:29] VITALS: BP 102/62
[2022-01-27 07:03] LABS: HEMATOCRIT 31.2 % (36.0-47.0); MEAN CORPUSCULAR HEMOGLOBIN 29.9 pg (27.0-33.0); MEAN CORPUSCULAR HGB CONC 32.1 g/dl (32.0-36.5); MEAN CORPUSCULAR VOLUME 93.1 fl (80.0-96.0); PLATELET COUNT, AUTOMATED 306 10^3/uL (150-450); RED BLOOD COUNT 3.35 10^6/uL (4.00-5.40); WHITE BLOOD COUNT 13.7 10^3/uL (4.0-10.0)
[2022-01-27] MEDS: BUDESONIDE 0.5 MG/2 ML INHALATION SUSPENSION INH SCH ×2 (07:15→20:36)
[2022-01-27] MEDS: INSULIN LISPRO (NovoLOG) PER UNIT SC SCH ×4 (07:30→21:00)
[2022-01-27 07:42] LABS: BLOOD UREA NITROGEN 16 MG/DL (7-18); CALCIUM LEVEL 8.7 MG/DL (8.8-10.2); CARBON DIOXIDE LEVEL 25 MEQ/L (21-32); CHLORIDE LEVEL 107 MEQ/L (98-107); CREATININE FOR GFR 0.73 MG/DL (0.55-1.30); GLOMERULAR FILTRATION RATE > 60.0 (>32); GLUCOSE, FASTING 76 MG/DL (70-100); POTASSIUM SERUM 3.6 MEQ/L (3.5-5.1); SODIUM LEVEL 141 MEQ/L (136-145)
[2022-01-27] MEDS: POTASSIUM CHLORIDE 10% LIQ 20 MEQ/15 ML UDC PO SCH (10:01)
[2022-01-27] MEDS: DOCUSATE SOD LIQ 100MG/10ML UDC PO SCH ×2 (10:01→21:22)
[2022-01-27] MEDS: HEPARIN SOD (PORCINE) 5000UNITS/ML 1ML VIAL/SYRINGE SQ SCH ×2 (10:02→21:22)
[2022-01-27] MEDS: QUEtiapine FUMARATE 12.5 MG HALF-TAB PO SCH (16:23)
[2022-01-27] MEDS: SODIUM CHLORIDE 0.9% INJ 10 ML SYR IV SCH (16:24)
[2022-01-27 20:56] LABS: BACTERIA, URINE LARGE AMOUNT; HYALINE CAST, URINE NONE SEEN /lpf (0-1); SQUAMOUS EPITHELIAL CELL URINE NONE SEEN /hpf (SMALL AMT)
[2022-01-28] MEDS: IPRATROPIUM 0.5MG/ALBUTEROL 2.5MG INH SOL UD 3ML (DUONEB) NEB SCH ×7 (00:11→23:19)
[2022-01-28 05:01] VITALS: BP 133/78
[2022-01-28] MEDS: BUDESONIDE 0.5 MG/2 ML INHALATION SUSPENSION INH SCH ×2 (07:24→19:44)
[2022-01-28] MEDS: INSULIN LISPRO (NovoLOG) PER UNIT SC SCH ×4 (07:30→21:00)
[2022-01-28 09:37] LABS: HEMATOCRIT 37.1 % (36.0-47.0); HEMOGLOBIN 11.9 g/dl (12.0-15.5); MEAN CORPUSCULAR HGB CONC 32.1 g/dl (32.0-36.5); MEAN CORPUSCULAR VOLUME 93.5 fl (80.0-96.0); PLATELET COUNT, AUTOMATED 317 10^3/uL (150-450); RED BLOOD COUNT 3.97 10^6/uL (4.00-5.40); WHITE BLOOD COUNT 12.2 10^3/uL (4.0-10.0)
[2022-01-28 09:45] VITALS: BP 129/68
[2022-01-28] MEDS: POTASSIUM CHLORIDE 10% LIQ 20 MEQ/15 ML UDC PO SCH (09:49)
[2022-01-28] MEDS: DOCUSATE SOD LIQ 100MG/10ML UDC PO SCH ×2 (09:49→21:00)
[2022-01-28] MEDS: HEPARIN SOD (PORCINE) 5000UNITS/ML 1ML VIAL/SYRINGE SQ SCH (09:50)
[2022-01-28 10:17] LABS: BLOOD UREA NITROGEN 12 MG/DL (7-18); CALCIUM LEVEL 8.9 MG/DL (8.8-10.2); CARBON DIOXIDE LEVEL 24 MEQ/L (21-32); CHLORIDE LEVEL 107 MEQ/L (98-107); CREATININE FOR GFR 0.62 MG/DL (0.55-1.30); GLOMERULAR FILTRATION RATE > 60.0 (>32); GLUCOSE, FASTING 103 MG/DL (70-100); POTASSIUM SERUM 3.8 MEQ/L (3.5-5.1); SODIUM LEVEL 141 MEQ/L (136-145)
[2022-01-28] MEDS: QUEtiapine FUMARATE 12.5 MG HALF-TAB PO SCH (16:06)
[2022-01-28] MEDS: SODIUM CHLORIDE 0.9% INJ 10 ML SYR IV SCH (16:07)
[2022-01-28] MEDS ORDERED: D5W/0.9% SODIUM CHLORIDE 1,000 ML IV SCH (22:55)
[2022-01-28] MEDS ORDERED: RAMELTEON 8 MG TAB (ROZEREM) PO PRN (23:40)
[2022-01-29] MEDS: HEPARIN SOD (PORCINE) 5000UNITS/ML 1ML VIAL/SYRINGE SQ SCH ×3 (00:35→20:45)
[2022-01-29] MEDS: IPRATROPIUM 0.5MG/ALBUTEROL 2.5MG INH SOL UD 3ML (DUONEB) NEB SCH ×6 (03:23→23:20)
[2022-01-29 06:00] VITALS: BP 131/61
[2022-01-29] MEDS: INSULIN LISPRO (NovoLOG) PER UNIT SC SCH ×5 (06:00→23:55)
[2022-01-29 07:05] LABS: HEMATOCRIT 31.1 % (36.0-47.0); MEAN CORPUSCULAR HGB CONC 31.2 g/dl (32.0-36.5); MEAN CORPUSCULAR VOLUME 93.1 fl (80.0-96.0); PLATELET COUNT, AUTOMATED 297 10^3/uL (150-450); RED BLOOD COUNT 3.34 10^6/uL (4.00-5.40); WHITE BLOOD COUNT 10.1 10^3/uL (4.0-10.0)
[2022-01-29 07:32] LABS: BLOOD UREA NITROGEN 9 MG/DL (7-18); CARBON DIOXIDE LEVEL 25 MEQ/L (21-32); CHLORIDE LEVEL 112 MEQ/L (98-107); CREATININE FOR GFR 0.52 MG/DL (0.55-1.30); GLOMERULAR FILTRATION RATE > 60.0 (>32); GLUCOSE, FASTING 109 MG/DL (70-100); MAGNESIUM LEVEL 1.9 MG/DL (1.8-2.4); POTASSIUM SERUM 3.7 MEQ/L (3.5-5.1); SODIUM LEVEL 143 MEQ/L (136-145)
[2022-01-29] MEDS: BUDESONIDE 0.5 MG/2 ML INHALATION SUSPENSION INH SCH ×2 (07:34→20:01)
[2022-01-29 07:41] LABS: HEMOGLOBIN 9.7 g/dl (12.0-15.5)
[2022-01-29] MEDS: DOCUSATE SOD LIQ 100MG/10ML UDC PO SCH ×2 (08:26→20:45)
[2022-01-29] MEDS: POTASSIUM CHLORIDE 10% LIQ 20 MEQ/15 ML UDC PO SCH (09:06)
[2022-01-29] MEDS: cefTRIAXone SOD 1 GM in D5W MINI-BAG PLUS 50 ML IV SCH (11:29)
[2022-01-29 14:00] VITALS: BP 130/68
[2022-01-29] MEDS: SODIUM CHLORIDE 0.9% INJ 10 ML SYR IV SCH (16:30)
[2022-01-29] MEDS: QUEtiapine FUMARATE 12.5 MG HALF-TAB PO SCH (16:30)
[2022-01-29 20:00] VITALS: BP 133/93
[2022-01-30] MEDS: IPRATROPIUM 0.5MG/ALBUTEROL 2.5MG INH SOL UD 3ML (DUONEB) NEB SCH ×6 (03:58→23:06)
[2022-01-30] MEDS: INSULIN LISPRO (NovoLOG) PER UNIT SC SCH ×3 (05:47→18:00)
[2022-01-30 06:00] VITALS: BP 125/73
[2022-01-30 07:33] LABS: HEMATOCRIT 32.6 % (36.0-47.0); HEMOGLOBIN 10.2 g/dl (12.0-15.5); MEAN CORPUSCULAR HEMOGLOBIN 29.7 pg (27.0-33.0); MEAN CORPUSCULAR HGB CONC 31.3 g/dl (32.0-36.5); PLATELET COUNT, AUTOMATED 319 10^3/uL (150-450); RED BLOOD COUNT 3.43 10^6/uL (4.00-5.40); WHITE BLOOD COUNT 10.2 10^3/uL (4.0-10.0)
[2022-01-30 08:11] LABS: BLOOD UREA NITROGEN 7 MG/DL (7-18); CARBON DIOXIDE LEVEL 22 MEQ/L (21-32); CHLORIDE LEVEL 109 MEQ/L (98-107); CREATININE FOR GFR 0.64 MG/DL (0.55-1.30); GLOMERULAR FILTRATION RATE > 60.0 (>32); GLUCOSE, FASTING 82 MG/DL (70-100); MAGNESIUM LEVEL 1.9 MG/DL (1.8-2.4); POTASSIUM SERUM 3.8 MEQ/L (3.5-5.1); SODIUM LEVEL 139 MEQ/L (136-145)
[2022-01-30] MEDS: BUDESONIDE 0.5 MG/2 ML INHALATION SUSPENSION INH SCH ×2 (08:20→19:52)
[2022-01-30] MEDS: DOCUSATE SOD LIQ 100MG/10ML UDC PO SCH ×2 (09:40→21:29)
[2022-01-30] MEDS: HEPARIN SOD (PORCINE) 5000UNITS/ML 1ML VIAL/SYRINGE SQ SCH ×2 (09:40→21:29)
[2022-01-30] MEDS: POTASSIUM CHLORIDE 10% LIQ 20 MEQ/15 ML UDC PO SCH (09:41)
[2022-01-30] MEDS: cefTRIAXone SOD 1 GM in D5W MINI-BAG PLUS 50 ML IV SCH (10:13)
[2022-01-30] MEDS: SODIUM CHLORIDE 0.9% INJ 10 ML SYR IV PRN (10:48)
[2022-01-30] MEDS: TAMSULOSIN 0.4 MG CAP PO SCH (13:13)
[2022-01-30] MEDS: DIMETHICONE 2% OINTMENT(VANICREAM) 70GM TUBE TOP SCH ×2 (13:14→21:29)
[2022-01-30 15:00] VITALS: BP 126/78
[2022-01-30] MEDS: QUEtiapine FUMARATE 12.5 MG HALF-TAB PO SCH (16:31)
[2022-01-30] MEDS: SODIUM CHLORIDE 0.9% INJ 10 ML SYR IV SCH (16:32)
[2022-01-30 20:00] VITALS: BP 124/74
[2022-01-31] MEDS: IPRATROPIUM 0.5MG/ALBUTEROL 2.5MG INH SOL UD 3ML (DUONEB) NEB SCH ×6 (03:17→23:35)
[2022-01-31] MEDS: INSULIN LISPRO (NovoLOG) PER UNIT SC SCH ×4 (06:00→17:59)
[2022-01-31 06:11] VITALS: BP 136/58
[2022-01-31 07:15] LABS: HEMATOCRIT 31.5 % (36.0-47.0); HEMOGLOBIN 9.9 g/dl (12.0-15.5); MEAN CORPUSCULAR HEMOGLOBIN 28.6 pg (27.0-33.0); MEAN CORPUSCULAR HGB CONC 31.4 g/dl (32.0-36.5); PLATELET COUNT, AUTOMATED 327 10^3/uL (150-450); RED BLOOD COUNT 3.46 10^6/uL (4.00-5.40); WHITE BLOOD COUNT 9.9 10^3/uL (4.0-10.0)
[2022-01-31] MEDS: BUDESONIDE 0.5 MG/2 ML INHALATION SUSPENSION INH SCH ×2 (07:31→19:30)
[2022-01-31] MEDS: TAMSULOSIN 0.4 MG CAP PO SCH (09:45)
[2022-01-31] MEDS: POTASSIUM CHLORIDE 10% LIQ 20 MEQ/15 ML UDC PO SCH (09:45)
[2022-01-31] MEDS: DOCUSATE SOD LIQ 100MG/10ML UDC PO SCH ×2 (09:45→20:52)
[2022-01-31] MEDS: HEPARIN SOD (PORCINE) 5000UNITS/ML 1ML VIAL/SYRINGE SQ SCH ×2 (09:46→20:53)
[2022-01-31] MEDS: DIMETHICONE 2% OINTMENT(VANICREAM) 70GM TUBE TOP SCH ×2 (09:47→20:53)
[2022-01-31] MEDS: cefTRIAXone SOD 1 GM in D5W MINI-BAG PLUS 50 ML IV SCH (11:47)
[2022-01-31] MEDS: SODIUM CHLORIDE 0.9% INJ 10 ML SYR IV PRN (12:21)
[2022-01-31 14:00] VITALS: BP 138/61
[2022-01-31] MEDS: SODIUM CHLORIDE 0.9% INJ 10 ML SYR IV SCH (16:18)
[2022-01-31] MEDS: QUEtiapine FUMARATE 12.5 MG HALF-TAB PO SCH (16:18)
[2022-01-31 21:00] VITALS: BP 128/64
[2022-02-01] MEDS: IPRATROPIUM 0.5MG/ALBUTEROL 2.5MG INH SOL UD 3ML (DUONEB) NEB SCH ×5 (04:00→21:09)
[2022-02-01 06:00] VITALS: BP 127/63
[2022-02-01] MEDS: INSULIN LISPRO (NovoLOG) PER UNIT SC SCH ×4 (06:00→18:00)
[2022-02-01] MEDS: BUDESONIDE 0.5 MG/2 ML INHALATION SUSPENSION INH SCH ×2 (07:17→21:09)
[2022-02-01] MEDS: DOCUSATE SOD LIQ 100MG/10ML UDC PO SCH ×2 (08:19→19:51)
[2022-02-01] MEDS: POTASSIUM CHLORIDE 10% LIQ 20 MEQ/15 ML UDC PO SCH (08:19)
[2022-02-01] MEDS: HEPARIN SOD (PORCINE) 5000UNITS/ML 1ML VIAL/SYRINGE SQ SCH ×2 (08:19→19:51)
[2022-02-01] MEDS: TAMSULOSIN 0.4 MG CAP PO SCH (08:19)
[2022-02-01] MEDS: DIMETHICONE 2% OINTMENT(VANICREAM) 70GM TUBE TOP SCH ×2 (08:20→19:51)
[2022-02-01] MEDS: cefTRIAXone SOD 1 GM in D5W MINI-BAG PLUS 50 ML IV SCH (11:24)
[2022-02-01] MEDS: SODIUM CHLORIDE 0.9% INJ 10 ML SYR IV PRN (12:03)
[2022-02-01 14:00] VITALS: BP 131/77
[2022-02-01] MEDS: QUEtiapine FUMARATE 12.5 MG HALF-TAB PO SCH (16:07)
[2022-02-01] MEDS: SODIUM CHLORIDE 0.9% INJ 10 ML SYR IV SCH (16:08)
[2022-02-01 20:00] VITALS: BP 96/51
[2022-02-02] MEDS: IPRATROPIUM 0.5MG/ALBUTEROL 2.5MG INH SOL UD 3ML (DUONEB) NEB SCH ×6 (03:14→20:58)
[2022-02-02 06:00] VITALS: BP 127/82
[2022-02-02] MEDS: INSULIN LISPRO (NovoLOG) PER UNIT SC SCH ×4 (06:00→18:00)
[2022-02-02 06:23] LABS: HEMATOCRIT 37.2 % (36.0-47.0); HEMOGLOBIN 11.4 g/dl (12.0-15.5); MEAN CORPUSCULAR HEMOGLOBIN 28.8 pg (27.0-33.0); MEAN CORPUSCULAR HGB CONC 30.6 g/dl (32.0-36.5); MEAN CORPUSCULAR VOLUME 93.9 fl (80.0-96.0); PLATELET COUNT, AUTOMATED 372 10^3/uL (150-450); RED BLOOD COUNT 3.96 10^6/uL (4.00-5.40)
[2022-02-02 06:57] VITALS: BP 127/80
[2022-02-02 07:17] LABS: BLOOD UREA NITROGEN 9 MG/DL (7-18); CARBON DIOXIDE LEVEL 25 MEQ/L (21-32); CHLORIDE LEVEL 106 MEQ/L (98-107); CREATININE FOR GFR 0.61 MG/DL (0.55-1.30); GLOMERULAR FILTRATION RATE > 60.0 (>32); GLUCOSE, FASTING 87 MG/DL (70-100); POTASSIUM SERUM 3.9 MEQ/L (3.5-5.1); SODIUM LEVEL 141 MEQ/L (136-145)
[2022-02-02] MEDS: BUDESONIDE 0.5 MG/2 ML INHALATION SUSPENSION INH SCH ×2 (07:32→20:58)
[2022-02-02] MEDS: DOCUSATE SOD LIQ 100MG/10ML UDC PO SCH ×2 (08:50→21:34)
[2022-02-02] MEDS: CEFDINIR 300 MG CAP (OMNICEF) PO SCH ×2 (08:50→21:34)
[2022-02-02] MEDS: HEPARIN SOD (PORCINE) 5000UNITS/ML 1ML VIAL/SYRINGE SQ SCH ×2 (08:50→21:34)
[2022-02-02] MEDS: TAMSULOSIN 0.4 MG CAP PO SCH (08:50)
[2022-02-02] MEDS: POTASSIUM CHLORIDE 10% LIQ 20 MEQ/15 ML UDC PO SCH (08:50)
[2022-02-02] MEDS: DIMETHICONE 2% OINTMENT(VANICREAM) 70GM TUBE TOP SCH ×2 (08:51→21:36)
[2022-02-02 14:00] VITALS: BP 126/78
[2022-02-02] MEDS: SODIUM CHLORIDE 0.9% INJ 10 ML SYR IV SCH (16:25)
[2022-02-02] MEDS: QUEtiapine FUMARATE 12.5 MG HALF-TAB PO SCH (17:05)
[2022-02-02 20:00] VITALS: BP 125/67
[2022-02-03] MEDS: IPRATROPIUM 0.5MG/ALBUTEROL 2.5MG INH SOL UD 3ML (DUONEB) NEB SCH ×7 (04:00→23:06)
[2022-02-03 05:59] LABS: HEMATOCRIT 31.9 % (36.0-47.0); HEMOGLOBIN 10.4 g/dl (12.0-15.5); MEAN CORPUSCULAR HEMOGLOBIN 30.1 pg (27.0-33.0); MEAN CORPUSCULAR HGB CONC 32.6 g/dl (32.0-36.5); MEAN CORPUSCULAR VOLUME 92.2 fl (80.0-96.0); PLATELET COUNT, AUTOMATED 342 10^3/uL (150-450); RED BLOOD COUNT 3.46 10^6/uL (4.00-5.40); WHITE BLOOD COUNT 9.6 10^3/uL (4.0-10.0)
[2022-02-03 06:00] VITALS: BP 123/66
[2022-02-03] MEDS: INSULIN LISPRO (NovoLOG) PER UNIT SC SCH ×4 (06:00→17:44)
[2022-02-03 06:36] LABS: BLOOD UREA NITROGEN 9 MG/DL (7-18); CALCIUM LEVEL 8.9 MG/DL (8.8-10.2); CARBON DIOXIDE LEVEL 24 MEQ/L (21-32); CHLORIDE LEVEL 109 MEQ/L (98-107); CREATININE FOR GFR 0.56 MG/DL (0.55-1.30); GLOMERULAR FILTRATION RATE > 60.0 (>32); GLUCOSE, FASTING 69 MG/DL (70-100); POTASSIUM SERUM 3.9 MEQ/L (3.5-5.1); SODIUM LEVEL 141 MEQ/L (136-145)
[2022-02-03] MEDS: BUDESONIDE 0.5 MG/2 ML INHALATION SUSPENSION INH SCH ×2 (07:15→19:44)
[2022-02-03] MEDS: TAMSULOSIN 0.4 MG CAP PO SCH (09:16)
[2022-02-03] MEDS: POTASSIUM CHLORIDE 10% LIQ 20 MEQ/15 ML UDC PO SCH (09:16)
[2022-02-03] MEDS: DOCUSATE SOD LIQ 100MG/10ML UDC PO SCH ×2 (09:16→21:35)
[2022-02-03] MEDS: HEPARIN SOD (PORCINE) 5000UNITS/ML 1ML VIAL/SYRINGE SQ SCH ×2 (09:16→21:36)
[2022-02-03] MEDS: CEFDINIR 300 MG CAP (OMNICEF) PO SCH ×2 (09:16→21:36)
[2022-02-03] MEDS: DIMETHICONE 2% OINTMENT(VANICREAM) 70GM TUBE TOP SCH ×2 (09:17→21:37)
[2022-02-03 14:00] VITALS: BP 140/65
[2022-02-03] MEDS ORDERED: COVID-19 VACC, MRNA(PFIZER)/PF 30MCG 0.3ML VIAL (EUA) IM ONE (17:00)
[2022-02-03] MEDS: QUEtiapine FUMARATE 12.5 MG HALF-TAB PO SCH (17:43)
[2022-02-03 20:00] VITALS: BP 104/78
[2022-02-04 06:00] VITALS: BP 123/66
[2022-02-04] MEDS: INSULIN LISPRO (NovoLOG) PER UNIT SC SCH ×4 (06:00→17:55)
[2022-02-04] MEDS: IPRATROPIUM 0.5MG/ALBUTEROL 2.5MG INH SOL UD 3ML (DUONEB) NEB SCH ×6 (06:02→23:08)
[2022-02-04] MEDS: BUDESONIDE 0.5 MG/2 ML INHALATION SUSPENSION INH SCH ×2 (07:19→19:38)
[2022-02-04] MEDS: HEPARIN SOD (PORCINE) 5000UNITS/ML 1ML VIAL/SYRINGE SQ SCH ×2 (08:31→21:59)
[2022-02-04] MEDS: DOCUSATE SOD LIQ 100MG/10ML UDC PO SCH ×2 (08:31→21:59)
[2022-02-04] MEDS: DIMETHICONE 2% OINTMENT(VANICREAM) 70GM TUBE TOP SCH ×2 (08:31→21:58)
[2022-02-04] MEDS: POTASSIUM CHLORIDE 10% LIQ 20 MEQ/15 ML UDC PO SCH (08:31)
[2022-02-04] MEDS: TAMSULOSIN 0.4 MG CAP PO SCH (08:31)
[2022-02-04] MEDS: CEFDINIR 300 MG CAP (OMNICEF) PO SCH ×2 (08:31→21:56)
[2022-02-04] MEDS: QUEtiapine FUMARATE 12.5 MG HALF-TAB PO SCH (17:24)
[2022-02-04] MEDS ORDERED: PILL CUTTER 1 EACH XX PRN (18:35)
[2022-02-04] MEDS: BETHANECHOL 10 MG TAB PO SCH (21:58)
[2022-02-05] MEDS: IPRATROPIUM 0.5MG/ALBUTEROL 2.5MG INH SOL UD 3ML (DUONEB) NEB SCH ×5 (03:09→20:51)
[2022-02-05 05:57] LABS: HEMATOCRIT 30.3 % (36.0-47.0); HEMOGLOBIN 9.8 g/dl (12.0-15.5); MEAN CORPUSCULAR HEMOGLOBIN 30.2 pg (27.0-33.0); MEAN CORPUSCULAR HGB CONC 32.3 g/dl (32.0-36.5); MEAN CORPUSCULAR VOLUME 93.2 fl (80.0-96.0); PLATELET COUNT, AUTOMATED 333 10^3/uL (150-450); RED BLOOD COUNT 3.25 10^6/uL (4.00-5.40); WHITE BLOOD COUNT 10.5 10^3/uL (4.0-10.0)
[2022-02-05] MEDS: INSULIN LISPRO (NovoLOG) PER UNIT SC SCH ×4 (06:00→18:00)
[2022-02-05 06:12] VITALS: BP 122/64
[2022-02-05 06:47] LABS: BLOOD UREA NITROGEN 13 MG/DL (7-18); CALCIUM LEVEL 8.9 MG/DL (8.8-10.2); CARBON DIOXIDE LEVEL 25 MEQ/L (21-32); CHLORIDE LEVEL 111 MEQ/L (98-107); CREATININE FOR GFR 0.62 MG/DL (0.55-1.30); GLOMERULAR FILTRATION RATE > 60.0 (>32); GLUCOSE, FASTING 85 MG/DL (70-100); SODIUM LEVEL 143 MEQ/L (136-145)
[2022-02-05] MEDS: BUDESONIDE 0.5 MG/2 ML INHALATION SUSPENSION INH SCH ×2 (07:10→20:51)
[2022-02-05] MEDS: POTASSIUM CHLORIDE 10% LIQ 20 MEQ/15 ML UDC PO SCH (08:17)
[2022-02-05] MEDS: DOCUSATE SOD LIQ 100MG/10ML UDC PO SCH ×3 (08:17→20:50)
[2022-02-05] MEDS: TAMSULOSIN 0.4 MG CAP PO SCH (08:17)
[2022-02-05] MEDS: HEPARIN SOD (PORCINE) 5000UNITS/ML 1ML VIAL/SYRINGE SQ SCH ×2 (08:18→20:41)
[2022-02-05] MEDS: DIMETHICONE 2% OINTMENT(VANICREAM) 70GM TUBE TOP SCH ×2 (08:18→20:42)
[2022-02-05] MEDS ORDERED: NS 1,000 ML IV ONE (08:45)
[2022-02-05] MEDS: BETHANECHOL 10 MG TAB PO SCH ×3 (09:53→20:41)
[2022-02-05] MEDS: MIRALAX *UNIT DOSE* 17GM PACKET PO SCH (14:08)
[2022-02-06] MEDS: IPRATROPIUM 0.5MG/ALBUTEROL 2.5MG INH SOL UD 3ML (DUONEB) NEB SCH ×7 (03:01→23:52)
[2022-02-06 06:00] VITALS: BP 120/65
[2022-02-06] MEDS: INSULIN LISPRO (NovoLOG) PER UNIT SC SCH ×4 (06:00→17:47)
[2022-02-06] MEDS ORDERED: LR 1,000 ML IV ONE (06:30)
[2022-02-06] MEDS: BUDESONIDE 0.5 MG/2 ML INHALATION SUSPENSION INH SCH ×2 (07:55→19:53)
[2022-02-06] MEDS ORDERED: METAMUCIL (PSYLLIUM) PACKET PO SCH (09:00)
[2022-02-06] MEDS: TAMSULOSIN 0.4 MG CAP PO SCH (09:30)
[2022-02-06] MEDS: DIMETHICONE 2% OINTMENT(VANICREAM) 70GM TUBE TOP SCH ×2 (09:30→20:37)
[2022-02-06] MEDS: MIRALAX *UNIT DOSE* 17GM PACKET PO SCH (09:30)
[2022-02-06] MEDS: POTASSIUM CHLORIDE 10% LIQ 20 MEQ/15 ML UDC PO SCH (09:30)
[2022-02-06] MEDS: DOCUSATE SOD LIQ 100MG/10ML UDC PO SCH ×2 (09:30→20:37)
[2022-02-06] MEDS: HEPARIN SOD (PORCINE) 5000UNITS/ML 1ML VIAL/SYRINGE SQ SCH ×2 (09:30→20:31)
[2022-02-06] MEDS ORDERED: ISOVUE-370 76% 100ML VIAL As Ordered ONE (10:02)
[2022-02-06] MEDS: METAMUCIL (PSYLLIUM) PACKET PO SCH ×2 (11:06→18:00)
[2022-02-07] MEDS: IPRATROPIUM 0.5MG/ALBUTEROL 2.5MG INH SOL UD 3ML (DUONEB) NEB SCH ×6 (03:16→23:26)
[2022-02-07] MEDS: INSULIN LISPRO (NovoLOG) PER UNIT SC SCH ×4 (05:48→17:12)
[2022-02-07 06:00] VITALS: BP 130/72
[2022-02-07] MEDS: BUDESONIDE 0.5 MG/2 ML INHALATION SUSPENSION INH SCH ×2 (07:34→19:27)
[2022-02-07] MEDS: MIRALAX *UNIT DOSE* 17GM PACKET PO SCH (07:41)
[2022-02-07] MEDS: DOCUSATE SOD LIQ 100MG/10ML UDC PO SCH ×2 (07:41→20:10)
[2022-02-07] MEDS: METAMUCIL (PSYLLIUM) PACKET PO SCH ×3 (09:00→17:12)
[2022-02-07] MEDS: POTASSIUM CHLORIDE 10% LIQ 20 MEQ/15 ML UDC PO SCH (09:08)
[2022-02-07] MEDS: TAMSULOSIN 0.4 MG CAP PO SCH (09:08)
[2022-02-07] MEDS: HEPARIN SOD (PORCINE) 5000UNITS/ML 1ML VIAL/SYRINGE SQ SCH ×2 (09:09→20:11)
[2022-02-07] MEDS: DIMETHICONE 2% OINTMENT(VANICREAM) 70GM TUBE TOP SCH ×2 (09:09→20:12)
[2022-02-07 17:09] LABS: HEMATOCRIT 32.3 % (36.0-47.0); HEMOGLOBIN 10.5 g/dl (12.0-15.5); MEAN CORPUSCULAR HEMOGLOBIN 30.1 pg (27.0-33.0); MEAN CORPUSCULAR HGB CONC 32.5 g/dl (32.0-36.5); MEAN CORPUSCULAR VOLUME 92.6 fl (80.0-96.0); PLATELET COUNT, AUTOMATED 291 10^3/uL (150-450); RED BLOOD COUNT 3.49 10^6/uL (4.00-5.40); WHITE BLOOD COUNT 9.8 10^3/uL (4.0-10.0)
[2022-02-07 17:42] LABS: BLOOD UREA NITROGEN 5 MG/DL (7-18); CALCIUM LEVEL 8.8 MG/DL (8.8-10.2); CARBON DIOXIDE LEVEL 25 MEQ/L (21-32); CHLORIDE LEVEL 107 MEQ/L (98-107); CREATININE FOR GFR 0.46 MG/DL (0.55-1.30); GLOMERULAR FILTRATION RATE > 60.0 (>32); GLUCOSE, FASTING 83 MG/DL (70-100); POTASSIUM SERUM 3.3 MEQ/L (3.5-5.1); SODIUM LEVEL 139 MEQ/L (136-145)
[2022-02-07] MEDS: POTASSIUM CHLORIDE 10MEQ SR TABLET PO SCH (20:10)
[2022-02-08] MEDS: IPRATROPIUM 0.5MG/ALBUTEROL 2.5MG INH SOL UD 3ML (DUONEB) NEB SCH ×6 (03:23→23:46)
[2022-02-08] MEDS: INSULIN LISPRO (NovoLOG) PER UNIT SC SCH ×4 (05:39→17:19)
[2022-02-08 06:00] VITALS: BP 106/56
[2022-02-08] MEDS: BUDESONIDE 0.5 MG/2 ML INHALATION SUSPENSION INH SCH ×2 (07:31→19:26)
[2022-02-08] MEDS: MIRALAX *UNIT DOSE* 17GM PACKET PO SCH (09:35)
[2022-02-08] MEDS: METAMUCIL (PSYLLIUM) PACKET PO SCH ×2 (09:35→17:24)
[2022-02-08] MEDS: DOCUSATE SOD LIQ 100MG/10ML UDC PO SCH (09:35)
[2022-02-08] MEDS: HEPARIN SOD (PORCINE) 5000UNITS/ML 1ML VIAL/SYRINGE SQ SCH ×2 (09:36→21:11)
[2022-02-08] MEDS: POTASSIUM CHLORIDE 10MEQ SR TABLET PO SCH (09:36)
[2022-02-08] MEDS: TAMSULOSIN 0.4 MG CAP PO SCH (09:36)
[2022-02-08] MEDS: DIMETHICONE 2% OINTMENT(VANICREAM) 70GM TUBE TOP SCH ×2 (09:37→21:11)
[2022-02-08] MEDS ORDERED: SENNA 8.6 MG TAB (SENOKOT) PO PRN (16:20)
[2022-02-09] MEDS: IPRATROPIUM 0.5MG/ALBUTEROL 2.5MG INH SOL UD 3ML (DUONEB) NEB SCH ×6 (03:02→23:55)
[2022-02-09 04:48] VITALS: BP 105/58
[2022-02-09] MEDS: INSULIN LISPRO (NovoLOG) PER UNIT SC SCH ×4 (05:33→18:25)
[2022-02-09 06:33] LABS: BLOOD UREA NITROGEN 10 MG/DL (7-18); CALCIUM LEVEL 8.9 MG/DL (8.8-10.2); CARBON DIOXIDE LEVEL 26 MEQ/L (21-32); CHLORIDE LEVEL 111 MEQ/L (98-107); CREATININE FOR GFR 0.57 MG/DL (0.55-1.30); GLOMERULAR FILTRATION RATE > 60.0 (>32); GLUCOSE, FASTING 89 MG/DL (70-100); POTASSIUM SERUM 4.4 MEQ/L (3.5-5.1); SODIUM LEVEL 141 MEQ/L (136-145)
[2022-02-09] MEDS: BUDESONIDE 0.5 MG/2 ML INHALATION SUSPENSION INH SCH ×2 (07:04→19:37)
[2022-02-09] MEDS: DIMETHICONE 2% OINTMENT(VANICREAM) 70GM TUBE TOP SCH ×2 (09:57→20:31)
[2022-02-09] MEDS: TAMSULOSIN 0.4 MG CAP PO SCH (09:57)
[2022-02-09] MEDS: HEPARIN SOD (PORCINE) 5000UNITS/ML 1ML VIAL/SYRINGE SQ SCH ×2 (09:57→20:30)
[2022-02-09] MEDS: METAMUCIL (PSYLLIUM) PACKET PO SCH ×2 (09:57→18:24)
[2022-02-09 22:00] VITALS: BP 118/64
[2022-02-10] MEDS: IPRATROPIUM 0.5MG/ALBUTEROL 2.5MG INH SOL UD 3ML (DUONEB) NEB SCH ×5 (04:00→20:09)
[2022-02-10 05:24] VITALS: BP 121/57
[2022-02-10] MEDS: INSULIN LISPRO (NovoLOG) PER UNIT SC SCH ×4 (06:00→17:39)
[2022-02-10] MEDS: BUDESONIDE 0.5 MG/2 ML INHALATION SUSPENSION INH SCH ×2 (07:06→20:09)
[2022-02-10] MEDS: METAMUCIL (PSYLLIUM) PACKET PO SCH ×2 (08:32→18:05)
[2022-02-10] MEDS: TAMSULOSIN 0.4 MG CAP PO SCH (08:32)
[2022-02-10] MEDS: HEPARIN SOD (PORCINE) 5000UNITS/ML 1ML VIAL/SYRINGE SQ SCH ×2 (08:33→20:18)
[2022-02-10] MEDS: DIMETHICONE 2% OINTMENT(VANICREAM) 70GM TUBE TOP SCH ×2 (08:40→20:18)
[2022-02-11] MEDS: IPRATROPIUM 0.5MG/ALBUTEROL 2.5MG INH SOL UD 3ML (DUONEB) NEB SCH ×6 (04:00→19:51)
[2022-02-11 06:00] VITALS: BP 146/70
[2022-02-11] MEDS: INSULIN LISPRO (NovoLOG) PER UNIT SC SCH ×4 (06:00→18:31)
[2022-02-11] MEDS: BUDESONIDE 0.5 MG/2 ML INHALATION SUSPENSION INH SCH ×2 (07:10→19:51)
[2022-02-11] MEDS: HEPARIN SOD (PORCINE) 5000UNITS/ML 1ML VIAL/SYRINGE SQ SCH ×2 (08:31→21:01)
[2022-02-11] MEDS: DIMETHICONE 2% OINTMENT(VANICREAM) 70GM TUBE TOP SCH ×2 (08:31→21:01)
[2022-02-11] MEDS: TAMSULOSIN 0.4 MG CAP PO SCH (08:31)
[2022-02-11] MEDS: METAMUCIL (PSYLLIUM) PACKET PO SCH ×2 (08:31→18:31)
[2022-02-12] MEDS: IPRATROPIUM 0.5MG/ALBUTEROL 2.5MG INH SOL UD 3ML (DUONEB) NEB SCH ×3 (03:52→07:03)
[2022-02-12 06:00] VITALS: BP 119/54
[2022-02-12] MEDS: INSULIN LISPRO (NovoLOG) PER UNIT SC SCH ×2 (06:00)
[2022-02-12] MEDS: BUDESONIDE 0.5 MG/2 ML INHALATION SUSPENSION INH SCH (07:03)
[2022-02-12] MEDS: DIMETHICONE 2% OINTMENT(VANICREAM) 70GM TUBE TOP SCH (08:08)
[2022-02-12] MEDS: METAMUCIL (PSYLLIUM) PACKET PO SCH (08:08)
[2022-02-12] MEDS: HEPARIN SOD (PORCINE) 5000UNITS/ML 1ML VIAL/SYRINGE SQ SCH (08:09)
[2022-02-12] MEDS: TAMSULOSIN 0.4 MG CAP PO SCH (08:09)
[2022-02-12] MEDS ORDERED: IPRA0.00 NEB (10:20)
[2022-02-12] MEDS ORDERED: META1POW PO (10:20)
[2022-02-12] MEDS ORDERED: BUDE0.5S6 INH (10:20)
[2022-02-12] MEDS ORDERED: FLOM0.4C39 PO (10:20)
[2022-02-12] MEDS ORDERED: SENN18TA PO (10:20)
== END 2022-02-12 11:29 | DRG 870 ==
LOC: M ED 23:17 → M ED INP 01-17 04:40 → M ICU 01-17 06:20 → M 4MAIN 01-22 13:27 → M MSPAV 01-22 14:26
PROVIDERS: ADMIT Internal Medicine; ATTEND Internal Medicine Nephrology
PROC: 5A1955Z Respiratory Ventilation, Greater than 96 Consecutive Hours (ICD-10-PCS; principal; 2022-01-16)
PROC: 0BH17EZ Insertion of Endotracheal Airway into Trachea, Via Natural or Artificial Opening (ICD-10-PCS; 2022-01-16)
PROC: 02HV33Z Insertion of Infusion Device into Superior Vena Cava, Percutaneous Approach (ICD-10-PCS; 2022-01-17)
PROC: 04HY32Z Insertion of Monitoring Device into Lower Artery, Percutaneous Approach (ICD-10-PCS; 2022-01-17)
PROC: 0W9930Z Drainage of Right Pleural Cavity with Drainage Device, Percutaneous Approach (ICD-10-PCS; 2022-01-17)
PROC: 0W9900Z Drainage of Right Pleural Cavity with Drainage Device, Open Approach (ICD-10-PCS; 2022-01-18)
PROC: 05HA33Z Insertion of Infusion Device into Left Brachial Vein, Percutaneous Approach (ICD-10-PCS; 2022-01-22)
DX: A41.9 Sepsis, unspecified organism (principal); J96.01 Acute respiratory failure with hypoxia; J18.9 Pneumonia, unspecified organism; J96.02 Acute respiratory failure with hypercapnia; I21.A1 Myocardial infarction type 2; R65.21 Severe sepsis with septic shock; G93.41 Metabolic encephalopathy; J93.83 Other pneumothorax; J44.0 Chronic obstructive pulmonary disease with (acute) lower respiratory infection; J44.1 Chronic obstructive pulmonary disease with (acute) exacerbation; N17.9 Acute kidney failure, unspecified; C34.12 Malignant neoplasm of upper lobe, left bronchus or lung; N39.0 Urinary tract infection, site not specified; C79.9 Secondary malignant neoplasm of unspecified site; Z66 Do not resuscitate; K59.00 Constipation, unspecified; R91.8 Other nonspecific abnormal finding of lung field; J98.2 Interstitial emphysema; R19.7 Diarrhea, unspecified; R13.10 Dysphagia, unspecified; R33.9 Retention of urine, unspecified; B96.20 Unspecified Escherichia coli [E. coli] as the cause of diseases classified elsewhere; R73.9 Hyperglycemia, unspecified; R41.0 Disorientation, unspecified; Z87.891 Personal history of nicotine dependence; Z90.49 Acquired absence of other specified parts of digestive tract

== ENCOUNTER → 2022-03-25 | Outpatient (REF) | payer MEDICARE ==
[~2022-03-25] MED LIST changes: +BUDE0.5S6 INH; +FLOM0.4C39 PO; +IPRA0.00 NEB; +META1POW PO; +SENN18TA PO
[2022-03-25 13:13] LABS: BASO # 0.1 10^3/uL (0.0-0.2); BASO % 0.6 % (0.0-1.0); EOS # 0.2 10^3/uL (0.0-0.5); EOS % 2.3 % (0.0-3.0); HEMOGLOBIN 12.1 g/dl (12.0-15.5); LYMPH # 1.7 10^3/uL (1.5-5.0); LYMPH % 16.9 % (24.0-44.0); MEAN CORPUSCULAR VOLUME 96.8 fl (80.0-96.0); MONO # 0.8 10^3/uL (0.0-0.8); NEUTROPHILS # 7.2 10^3/uL (1.5-8.5); NEUTROPHILS % 71.8 % (36.0-66.0); PLATELET COUNT, AUTOMATED 293 10^3/uL (150-450); RED BLOOD COUNT 4.03 10^6/uL (4.00-5.40); WHITE BLOOD COUNT 10.1 10^3/uL (4.0-10.0)
[2022-03-25 13:51] LABS: ALBUMIN 3.1 GM/DL (3.2-5.2); ALT/SGPT 18 U/L (12-78); BILIRUBIN,TOTAL 0.5 MG/DL (0.2-1.0); BLOOD UREA NITROGEN 14 MG/DL (7-18); CALCIUM LEVEL 8.7 MG/DL (8.8-10.2); CARBON DIOXIDE LEVEL 26 MEQ/L (21-32); CHLORIDE LEVEL 107 MEQ/L (98-107); CREATININE FOR GFR 0.55 MG/DL (0.55-1.30); GLOMERULAR FILTRATION RATE > 60.0 (>32); GLUCOSE, FASTING 130 MG/DL (70-100); POTASSIUM SERUM 3.8 MEQ/L (3.5-5.1); SODIUM LEVEL 140 MEQ/L (136-145); TOTAL PROTEIN 6.5 GM/DL (6.4-8.2)
[2022-03-25 21:03] LABS: HEMOGLOBIN A1c 5.5 %
== END ==
LOC: SKLAB7 08:42
PROVIDERS: ATTEND Nurse Practitioner Family
DX: D64.9 Anemia, unspecified (principal); E11.9 Type 2 diabetes mellitus without complications

== ENCOUNTER → 2022-06-16 | Outpatient (REF) | payer MEDICARE ==
[2022-06-16 11:51] LABS: HEMATOCRIT 37.6 % (36.0-47.0); HEMOGLOBIN 11.7 g/dl (12.0-15.5); MEAN CORPUSCULAR HEMOGLOBIN 29.3 pg (27.0-33.0); MEAN CORPUSCULAR HGB CONC 31.1 g/dl (32.0-36.5); MEAN CORPUSCULAR VOLUME 94.2 fl (80.0-96.0); PLATELET COUNT, AUTOMATED 212 10^3/uL (150-450); RED BLOOD COUNT 3.99 10^6/uL (4.00-5.40); WHITE BLOOD COUNT 6.3 10^3/uL (4.0-10.0)
[2022-06-16 12:20] LABS: ALBUMIN 2.9 G/DL (3.2-5.2); ALKALINE PHOSPHATASE 81 U/L (46-116); ALT/SGPT 27 U/L (7.0-40); AST/SGOT 36 U/L (<34); BILIRUBIN,TOTAL 0.4 MG/DL (0.3-1.2); BLOOD UREA NITROGEN 28 MG/DL (9-23); CALCIUM LEVEL 8.4 MG/DL (8.3-10.6); CARBON DIOXIDE LEVEL 28 MMOL/L (20-31); CHLORIDE LEVEL 106 MMOL/L (98-107); CREATININE FOR GFR 0.63 MG/DL (0.55-1.30); GLOMERULAR FILTRATION RATE > 60.0 (>32); GLUCOSE, FASTING 96 MG/DL (74-106); POTASSIUM SERUM 4.1 MMOL/L (3.5-5.1); SODIUM LEVEL 143 MMOL/L (136-145); TOTAL PROTEIN 6.4 G/DL (5.7-8.2)
== END ==
LOC: SKLAB7 10:46
PROVIDERS: ATTEND Internal Medicine
DX: R53.83 Other fatigue (principal)

== ENCOUNTER → 2022-06-21 | Outpatient (REF) | payer MEDICARE | LOC: SKLAB7 10:53 | PROVIDERS: ATTEND Internal Medicine | DX: U07.1 COVID-19 (principal); Z53.8 Procedure and treatment not carried out for other reasons ==

== ENCOUNTER → 2022-06-23 | Outpatient (REF) | payer MEDICARE ==
[2022-06-23 13:49] LABS: HEMATOCRIT 38.5 % (36.0-47.0); MEAN CORPUSCULAR HEMOGLOBIN 28.9 pg (27.0-33.0); MEAN CORPUSCULAR HGB CONC 31.2 g/dl (32.0-36.5); MEAN CORPUSCULAR VOLUME 92.8 fl (80.0-96.0); PLATELET COUNT, AUTOMATED 338 10^3/uL (150-450); RED BLOOD COUNT 4.15 10^6/uL (4.00-5.40); WHITE BLOOD COUNT 12.5 10^3/uL (4.0-10.0)
[2022-06-23 14:31] LABS: ALBUMIN 2.6 G/DL (3.2-5.2); ALKALINE PHOSPHATASE 80 U/L (46-116); ALT/SGPT 19 U/L (7.0-40); AST/SGOT 28 U/L (<34); BILIRUBIN,TOTAL 0.4 MG/DL (0.3-1.2); BLOOD UREA NITROGEN 31 MG/DL (9-23); CALCIUM LEVEL 8.3 MG/DL (8.3-10.6); CARBON DIOXIDE LEVEL 25 MMOL/L (20-31); CHLORIDE LEVEL 108 MMOL/L (98-107); CREATININE FOR GFR 0.62 MG/DL (0.55-1.30); GLOMERULAR FILTRATION RATE > 60.0 (>32); GLUCOSE, FASTING 129 MG/DL (74-106); SODIUM LEVEL 144 MMOL/L (136-145); TOTAL PROTEIN 6.5 G/DL (5.7-8.2)
== END ==
LOC: SKLAB7 11:59
PROVIDERS: ATTEND Internal Medicine
DX: U07.1 COVID-19 (principal); Z79.899 Other long term (current) drug therapy

== ENCOUNTER → 2022-06-28 | Outpatient (REF) | payer MEDICARE ==
[2022-06-28 08:18] LABS: HEMATOCRIT 37.8 % (36.0-47.0); HEMOGLOBIN 11.9 g/dl (12.0-15.5); MEAN CORPUSCULAR HEMOGLOBIN 29.5 pg (27.0-33.0); MEAN CORPUSCULAR HGB CONC 31.5 g/dl (32.0-36.5); MEAN CORPUSCULAR VOLUME 93.6 fl (80.0-96.0); PLATELET COUNT, AUTOMATED 386 10^3/uL (150-450); RED BLOOD COUNT 4.04 10^6/uL (4.00-5.40); WHITE BLOOD COUNT 11.6 10^3/uL (4.0-10.0)
[2022-06-28 09:31] LABS: ALBUMIN 2.4 G/DL (3.2-5.2); ALKALINE PHOSPHATASE 94 U/L (46-116); ALT/SGPT 21 U/L (7.0-40); AST/SGOT 28 U/L (<34); BILIRUBIN,TOTAL 0.6 MG/DL (0.3-1.2); BLOOD UREA NITROGEN 25 MG/DL (9-23); CALCIUM LEVEL 8.6 MG/DL (8.3-10.6); CARBON DIOXIDE LEVEL 28 MMOL/L (20-31); CHLORIDE LEVEL 107 MMOL/L (98-107); CREATININE FOR GFR 0.58 MG/DL (0.55-1.30); GLOMERULAR FILTRATION RATE > 60.0 (>32); GLUCOSE, FASTING 92 MG/DL (74-106); POTASSIUM SERUM 3.8 MMOL/L (3.5-5.1); SODIUM LEVEL 146 MMOL/L (136-145); TOTAL PROTEIN 6.3 G/DL (5.7-8.2)
== END ==
LOC: SKLAB7 07:00
PROVIDERS: ATTEND Internal Medicine
DX: U07.1 COVID-19 (principal); Z79.899 Other long term (current) drug therapy

== ENCOUNTER → 2022-08-20 | Outpatient (REF) | payer MEDICARE ==
[2022-08-20 08:41] LABS: BASO % 0.5 % (0.0-1.0); EOS # 0.3 10^3/uL (0.0-0.5); EOS % 3.4 % (0.0-3.0); HEMATOCRIT 35.5 % (36.0-47.0); HEMOGLOBIN 10.9 g/dl (12.0-15.5); LYMPH # 1.4 10^3/uL (1.5-5.0); LYMPH % 18.3 % (24.0-44.0); MEAN CORPUSCULAR HEMOGLOBIN 28.8 pg (27.0-33.0); MEAN CORPUSCULAR HGB CONC 30.7 g/dl (32.0-36.5); MEAN CORPUSCULAR VOLUME 93.9 fl (80.0-96.0); MONO # 1.2 10^3/uL (0.0-0.8); MONO % 15.5 % (2.0-8.0); NEUTROPHILS # 4.6 10^3/uL (1.5-8.5); NEUTROPHILS % 61.9 % (36.0-66.0); PLATELET COUNT, AUTOMATED 390 10^3/uL (150-450); RED BLOOD COUNT 3.78 10^6/uL (4.00-5.40); WHITE BLOOD COUNT 7.4 10^3/uL (4.0-10.0)
[2022-08-20 09:09] LABS: ALBUMIN 2.4 G/DL (3.2-5.2); ALKALINE PHOSPHATASE 74 U/L (46-116); ALT/SGPT 15 U/L (7.0-40); AST/SGOT 35 U/L (<34); BILIRUBIN,TOTAL 0.3 MG/DL (0.3-1.2); BLOOD UREA NITROGEN 28 MG/DL (9-23); CALCIUM LEVEL 9.1 MG/DL (8.3-10.6); CARBON DIOXIDE LEVEL 32 MMOL/L (20-31); CHLORIDE LEVEL 105 MMOL/L (98-107); CREATININE FOR GFR 0.49 MG/DL (0.55-1.30); GLOMERULAR FILTRATION RATE > 60.0 (>32); GLUCOSE, FASTING 89 MG/DL (74-106); POTASSIUM SERUM 4.1 MMOL/L (3.5-5.1); SODIUM LEVEL 140 MMOL/L (136-145); TOTAL PROTEIN 6.1 G/DL (5.7-8.2)
== END ==
LOC: SKLAB7 06:59
PROVIDERS: ATTEND Nurse Practitioner Family
DX: R50.9 Fever, unspecified (principal)

== ENCOUNTER → 2022-09-23 | Outpatient (REF) | payer MEDICARE ==
[2022-09-23 08:40] LABS: HEMATOCRIT 40.8 % (36.0-47.0); HEMOGLOBIN 12.1 g/dl (12.0-15.5); MEAN CORPUSCULAR HEMOGLOBIN 28.6 pg (27.0-33.0); MEAN CORPUSCULAR HGB CONC 29.7 g/dl (32.0-36.5); MEAN CORPUSCULAR VOLUME 96.5 fl (80.0-96.0); PLATELET COUNT, AUTOMATED 234 10^3/uL (150-450); RED BLOOD COUNT 4.23 10^6/uL (4.00-5.40)
[2022-09-23 09:05] LABS: ALBUMIN 2.7 G/DL (3.2-5.2); ALKALINE PHOSPHATASE 80 U/L (46-116); ALT/SGPT 16 U/L (7.0-40); AST/SGOT 32 U/L (<34); BILIRUBIN,TOTAL 0.3 MG/DL (0.3-1.2); BLOOD UREA NITROGEN 19 MG/DL (9-23); CALCIUM LEVEL 8.7 MG/DL (8.3-10.6); CARBON DIOXIDE LEVEL 29 MMOL/L (20-31); CHLORIDE LEVEL 103 MMOL/L (98-107); CREATININE FOR GFR 0.49 MG/DL (0.55-1.30); GLOMERULAR FILTRATION RATE > 60.0 (>32); GLUCOSE, FASTING 80 MG/DL (74-106); POTASSIUM SERUM 4.4 MMOL/L (3.5-5.1); SODIUM LEVEL 137 MMOL/L (136-145); TOTAL PROTEIN 6.7 G/DL (5.7-8.2)
== END ==
LOC: SKLAB7 14:05
PROVIDERS: ATTEND Internal Medicine
DX: D64.9 Anemia, unspecified (principal); J44.9 Chronic obstructive pulmonary disease, unspecified